=== PATIENT | female | born 1970 | race Caucasian/White ===

== ENCOUNTER 2022-08-23 09:54 | Day surgery (SDC) | payer OTHER ==
[~2022-08-23] VITALS: Ht 147.3 cm; Wt 57.6 kg
[2022-08-23] MEDS ORDERED: fentaNYL citrate 0.05 MG/ML VIAL ONE (10:44)
[2022-08-23] MEDS ORDERED: LIDOCAINE 2% 100 MG/5 ML UJET TP ONE (10:45)
[2022-08-23] MEDS ORDERED: fentaNYL citrate 0.05 MG/ML VIAL IVP ONE (12:40)
== END 2022-08-23 11:44 | disposition home or self-care (01) ==
LOC: MMU 09:54 → MDS 09:54
PROVIDERS: ATTEND Internal Medicine Gastroenterology
DX: R19.5 Other fecal abnormalities (principal); K63.5 Polyp of colon; K59.00 Constipation, unspecified; I10 Essential (primary) hypertension; G43.909 Migraine, unspecified, not intractable, without status migrainosus; M19.90 Unspecified osteoarthritis, unspecified site; Z80.0 Family history of malignant neoplasm of digestive organs; Z20.822 Contact with and (suspected) exposure to COVID-19
CPT/HCPCS: 45385; 87426; J3010

== ENCOUNTER 2023-02-28 09:29 | Day surgery (SDC) | payer OTHER ==
[~2023-02-28] VITALS: Ht 147.3 cm; Wt 57.2 kg
[2023-02-28] MEDS ORDERED: fentaNYL citrate 0.05 MG/ML VIAL ONE (10:38)
[2023-02-28] MEDS ORDERED: MIDAZOLAM 2 MG/2 ML VIAL ONE (10:38)
[2023-02-28] MEDS ORDERED: MIDAZOLAM 2 MG/2 ML VIAL IVP ONE (14:25)
== END 2023-02-28 11:40 | disposition home or self-care (01) ==
LOC: MOR 09:29 → MMU 09:43 → MOR 11:40
PROVIDERS: ATTEND Internal Medicine Gastroenterology
DX: R10.13 Epigastric pain (principal)
CPT/HCPCS: 43235; J2250; J3010